=== PATIENT | male | born 1950 | race Hispanic/Latino ===

== ENCOUNTER 2021-05-21 20:16 | Emergency (ER) | payer MEDICARE ==
[~2021-05-21] VITALS: Ht 160 cm; Wt 70.3 kg
[2021-05-21] MEDS ORDERED: CEPHALEXIN500 MG PO (20:52)
[2021-05-21] MEDS ORDERED: HIBICLENS120 ML TOP (20:52)
[2021-05-21] MEDS ORDERED: BACTRIM DS TAB1 EACH PO (20:52)
== END 2021-05-21 21:20 | disposition home or self-care (01) ==
LOC: ER 20:40
DX: L02.415 Cutaneous abscess of right lower limb (principal)
CPT/HCPCS: 99282